=== PATIENT | female | born 1970 | race Caucasian/White ===

== ENCOUNTER → 2023-09-05 09:59 | Outpatient (REF) | payer OTHER, SELFPAY | LOC: WDC 09:59 | PROVIDERS: ATTENDING PHYSICIAN Obstetrics & Gynecology Gynecology; FAMILY PHYSICIAN Family Medicine | DX: Z12.31 Encounter for screening mammogram for malignant neoplasm of breast (principal) | CPT/HCPCS: 77063; 77067 ==

== ENCOUNTER 2024-01-16 06:42 | Emergency (ER) | payer BC, SELFPAY ==
[2024-01-16 06:50] VITALS: BP 129/74
[2024-01-16 07:19] VITALS: BMI 26.4
[2024-01-16 07:20] VITALS: BP 97/64
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
[2024-01-16] MEDS: BENADRYL 12.5 MG IV (07:38)
[2024-01-16] MEDS: TORADOL 15 MG IV (07:38)
[2024-01-16] MEDS: COMPAZINE 5 MG IV (07:38)
[2024-01-16] MEDS: NSS 1000 IV (07:38)
[2024-01-16 07:43] LABS: % Basophils 0.6 % (0-2); % Eosinophils 5.8 % (0-6); % Immature Granulocytes 0.2 % (0-0.5); % Lymphocytes 28.6 % (20.5-51.1); % Monocytes 11.2 % (1.7-9.3); % Neutrophils 53.6 % (42.2-75.2); Absolute Eosinophils 0.3 10^3/uL (0-0.7); Absolute Lymphocytes 1.4 10^3/uL (1.2-3.4); Absolute Monocytes 0.5 10^3/uL (0.1-0.6); Absolute Neutrophils 2.6 10^3/uL (1.4-6.5); Hematocrit 34.8 % (37.0-47.0); Mean Corp Hgb Conc. 34.5 g/dL (33.0-37.0); Mean Corpuscular Hgb 30.4 pg (27.0-31.0); Mean Corpuscular Volume 88.1 fL (81.0-99.0); Mean Platelet Volume 10.4 fL (7.4-10.4); Nucleated Red Blood Cells % 0 %; Platelet Count 190 10^3/uL (130-400); Red Blood Cell Count 3.95 10^6/uL (4.20-5.40); Red Cell Dist. Width 12.4 % (11.5-14.5); White Blood Cell Count 4.8 10^3/uL (4.8-10.8)
[2024-01-16 07:49] LABS: ALT (SGPT) 28 U/L (0-35); AST (SGOT) 30 U/L (14-36); Albumin 3.9 g/dl (3.5-5.0); Alkaline Phosphatase 63 U/L (38-126); Blood Urea Nitrogen 13 mg/dl (7-17); Calcium 9.3 mg/dl (8.4-10.2); Carbon Dioxide 26 mmol/L (22-30); Chloride 107 mmol/L (98-107); Estimated Creatinine Clearance 75 ml/min; Glucose 97 mg/dl (70-99); Sodium 138 mmol/L (135-145); Total Bilirubin 0.4 mg/dl (0.2-1.3); Total Protein 6.4 g/dl (6.3-8.2); eGFR > 60.00
[2024-01-16 08:00] VITALS: BP 115/77
[2024-01-16 08:19] LABS: TSH Reflex To Free T4 2.37 uIU/ml (0.47-4.68)
[2024-01-16 09:00] VITALS: BP 101/70
[2024-01-16 09:15] LABS: Erythrocyte Sed Rate 16 mm/hour (0-20)
[2024-01-16 10:00] VITALS: BP 94/70
== END 2024-01-16 10:20 | disposition home or self-care (01) ==
LOC: EMR 06:42
PROVIDERS: EMERGENCY PHYSICIAN Emergency Medicine; FAMILY PHYSICIAN Family Medicine
DX: R51.9 Headache, unspecified (principal); R20.2 Paresthesia of skin
CPT/HCPCS: 99285; 96374; 96375 ×2; 96361; 70450; 80053; 84443; 85025; 85652

== ENCOUNTER → 2024-04-20 07:11 | Outpatient (REF) | payer BC, SELFPAY | LOC: HWRAD 07:11 | PROVIDERS: ATTENDING PHYSICIAN Family Medicine | DX: E04.1 Nontoxic single thyroid nodule (principal) | CPT/HCPCS: 76536 ==

== ENCOUNTER → 2024-05-31 07:15 | Outpatient (REF) | payer BC, SELFPAY | LOC: EMG 07:15 | PROVIDERS: ATTENDING PHYSICIAN Family Medicine; FAMILY PHYSICIAN Family Medicine | DX: R20.0 Anesthesia of skin (principal); R20.2 Paresthesia of skin; A69.20 Lyme disease, unspecified | CPT/HCPCS: 95886; 95913 ==

== ENCOUNTER → 2024-09-10 10:08 | Outpatient (REF) | payer BC, SELFPAY | LOC: WDC 10:08 | PROVIDERS: ATTENDING PHYSICIAN Obstetrics & Gynecology Gynecology; FAMILY PHYSICIAN Family Medicine | DX: Z12.31 Encounter for screening mammogram for malignant neoplasm of breast (principal) | CPT/HCPCS: 77063; 77067 ==

== ENCOUNTER → 2024-10-10 07:15 | Outpatient (REF) | payer BC, SELFPAY | LOC: HWRAD 07:15 | PROVIDERS: ATTENDING PHYSICIAN Nurse Practitioner Family; FAMILY PHYSICIAN Family Medicine | DX: E04.2 Nontoxic multinodular goiter (principal) | CPT/HCPCS: 76536 ==

== ENCOUNTER → 2024-11-09 09:20 | Outpatient (REF) | payer BC, SELFPAY ==
[2024-11-09 09:30] VITALS: BP 89/69; BP_SYST 74
== END ==
LOC: RADI 09:20
PROVIDERS: ATTENDING PHYSICIAN Nurse Practitioner Family; FAMILY PHYSICIAN Family Medicine
DX: E04.1 Nontoxic single thyroid nodule (principal)
CPT/HCPCS: 88173; 10005

== ENCOUNTER → 2024-12-13 12:58 | Outpatient (REF) | payer BC, SELFPAY | LOC: HWRAD 12:58 | PROVIDERS: ATTENDING PHYSICIAN Obstetrics & Gynecology; FAMILY PHYSICIAN Family Medicine | DX: R10.2 Pelvic and perineal pain (principal) | CPT/HCPCS: 76830; 76856 ==

== ENCOUNTER → 2025-06-13 13:20 | Outpatient (REF) | payer BC, SELFPAY | LOC: RCS 13:20 | PROVIDERS: ATTENDING PHYSICIAN Family Medicine | DX: R42 Dizziness and giddiness (principal) | CPT/HCPCS: 93225; 93226 ==